=== PATIENT | male | born 1950 | race Caucasian/White ===

== ENCOUNTER 2022-01-25 12:08 | Outpatient (CLI) | payer MEDICARE, SELFPAY ==
--- NOTE | ~2022-01-25 | MR_ITS ---
. EXAMINATION: MR brain/brain stem wo/w con DATE: 01/25/2022 13:23 INDICATION: Dizziness. Ataxia. TECHNIQUE: Magnetic resonance imaging (MRI) of the brain and brainstem was performed without and with 20 mL MultiHance intravenous contrast. COMPARISON: None. FINDINGS: There are scattered areas of nonspecific increased T2-weighted signal intensity in the cere bral white matter, which is within normal limits for the patient's age. There is no intracranial hemo rrhage, acute infarction, or abnormal intracranial mass lesion. The ventricles are normal in size. Th ere is mucosal thickening in the paranasal sinuses. The orbits are normal. The mastoid air cells are normal. IMPRESSION: 1. Normal aging brain. Reviewed, dictated and finalized at location A. IMPRESSION: 1. Normal aging brain.
--- NOTE | ~2022-01-25 | US_ITS ---
EXAMINATION: US carotid duplex BI DATE: 01/25/2022 13:43 INDICATION: Ataxia. Gait disturbance. Seizure-like episode. Dizziness. TECHNIQUE: Grayscale, color Doppler, and pulsed Doppler images of the cervical carotid arteries were obtained. The degree of vessel stenosis is placed in one of the following categories: normal, <50%, 5 0-69%, >=70% but less than near-occlusion, near-occlusion, or total occlusion. Note that percent sten osis relative to normal distal artery lumen diameter is indirectly measured from velocity measurement s as described by Celso, et al. Radiology 2003; 229:[id number]. COMPARISON: None. FINDINGS: RIGHT: The right common carotid artery (CCA) peak systolic velocity (PSV) is 78 cm/s. The right internal car otid artery (ICA) PSV is 64 cm/s. The right ICA end-diastolic velocity (EDV) is 22 cm/s. The right IC A/CCA PSV ratio is 0.8. Grayscale and color Doppler images yield an estimate of <50% diameter reducti on from plaque in the ICA. The external carotid artery (ECA) PSV is 86 cm/s. There is antegrade flow in the right vertebral artery. LEFT: The left CCA PSV is 87 cm/s. The left ICA PSV is 77 cm/s. The left ICA EDV is 23 cm/s. The left ICA/C CA PSV ratio is 0.9. Grayscale and color Doppler images yield an estimate of <50% diameter reduction from plaque in the ICA. The ECA PSV is 75 cm/s. There is antegrade flow in the left vertebral artery. IMPRESSION: 1. <50% stenosis in the right internal carotid artery. 2. <50% stenosis in the left internal carotid artery. Reviewed, dictated and finalized at location A.
[2022-01-25 13:00] LABS: Estimated Glomerular Filt Rate > 60
== END 2022-01-25 12:09 | disposition home or self-care (01) ==
PROVIDERS: PCP Internal Medicine; Visit Provider Physician Assistant Medical
DX: R26.0 Ataxic gait (principal); G40.89 Other seizures; R42 Dizziness and giddiness; I65.23 Occlusion and stenosis of bilateral carotid arteries
CPT/HCPCS: 70553; 93880; A9577

== ENCOUNTER 2022-02-20 12:46 | Emergency (ER) | payer OTHER, MEDICARE, SELFPAY ==
--- NOTE | ~2022-02-20 | XR_ITS ---
EXAM: XR knee RT 3V DATE: 02/20/2022 17:31 HISTORY: anterior pain s/p fall . COMPARISON: None available. FINDINGS: Normal mineralization. No fracture or dislocation. No lytic or blastic lesion. Moderate ri ght knee joint osteoarthritis. No erosion or periosteal change. Vascular calcifications. IMPRESSION: No acute osseous finding in the right knee. Reviewed, dictated and finalized at location K.
--- NOTE | ~2022-02-20 | US_ITS ---
EXAMINATION: US venous doppler LE RT DATE: 02/20/2022 15:51 INDICATION: pain, redness, swelling . TECHNIQUE: Grayscale images without and with compression and Doppler images of the right lower extrem ity veins were obtained. COMPARISON: None FINDINGS: The right common femoral vein, profunda (deep) femoral vein, femoral vein, popliteal vein, peroneal v ein, posterior tibial veins, gastrocnemius vein, and greater saphenous vein are patent. IMPRESSION: 1. Patent right lower extremity veins. No evidence of deep venous thrombosis. Reviewed, dictated and finalized at location K.
--- NOTE | ~2022-02-20 | XR_ITS ---
EXAM: XR foot RT min 3V DATE: 02/20/2022 16:01 HISTORY: INJURY 2-3WKS AGO. PAIN SWELLING TO DORSUM OF FOOT . COMPARISON: None available. FINDINGS: Decreased mineralization. Mildly comminuted and mildly angulated fractures of the distal r ight second and third metatarsals. No lytic or blastic lesion. Moderate degenerative change at the fi rst MTP. No erosion or periosteal change. Forefoot soft tissue swelling. IMPRESSION: Mildly angulated fractures of the distal right second and third metatarsals. Reviewed, dictated and finalized at location K. IMPRESSION: Mildly angulated fractures of the distal right second and third met atarsals.
[2022-02-20 13:33] VITALS: BP 138/70; PULSE 78; RESP 20; TEMP 36.3; O2SAT 99
--- NOTE | 2022-02-20 15:30 | ED.LOWEXIN ---
HPI - Extremity Injury (Lower) General Chief Complaint: Extremity Injury, Lower <Digna Smith PA-C - Last Filed: 02/20/22 19:05> Stated Complaint: foot pain/redness <Digna Smith PA-C - Last Filed: 02/20/22 19:05> Time Seen by Provider: 02/20/22 15:11 <Digna Smith PA-C - Last Filed: 02/20/22 19:05> History of Present Illness HPI Narrative: Patient 72-year-old male here for evaluation of right foot pain, swelling and redness over the past week. Patient had injuries last week in which she tripped over an object on the ground and landed on his foot in inversion. He was evaluated at an outside hospital, had plain films done that were negative, and was told that he had an ankle sprain. Patient has been walking on the foot and has not use any pain medicine, but he notes that he has had bruising and swelling ever since. No numbness or tingling or difficulty moving the foot. Also noting right knee pain since the fall. No fevers, chills, calf pain. <SHERLY Sosa Last Filed: 02/20/22 19:05> Related Data Home Medications: Home Medications Medication Instructions Recorded Confirmed aspirin 81 mg tablet,delayed 81 mg PO DAILY 01/25/22 release (Adult Low Dose Aspirin) diazepam 5 mg tablet 5 mg PO QHS PRN 01/25/22 glimepiride 1 mg tablet 1 mg PO QAM 01/25/22 lisinopril 10 mg tablet 10 mg PO DAILY 01/25/22 metformin 500 mg tablet 1,000 mg PO BID 01/25/22 omeprazole 20 mg tablet,delayed 20 mg PO DAILY 01/25/22 release simvastatin 20 mg tablet 20 mg PO DAILY 01/25/22 tamsulosin 0.4 mg capsule 0.4 mg PO DAILY 02/04/22 <SHERLY Sosa Last Filed: 02/20/22 19:05> Allergies/Adverse Reactions: Allergies Allergy/AdvReac Type Severity Reaction Status Date / Time Penicillins AdvReac Unknown PASSED OUT Verified 02/04/22 15:24 <Digna Smith PA-C - Last Filed: 02/20/22 19:05> Review of Systems Review of Systems: Gen: Denies fevers or chills Eyes: Denies eye pain or visual change ENT: Denies congestion Respiratory: Denies shortness of breath or cough CV: Denies chest pain or palpitations GI: Denies abdominal pain nausea, emesis or diarrhea : denies burning, urgency, frequency or hematuria Musculoskeletal: Reports right foot pain. Denies back pain or muscle pain Neuro: Denies numbness, tingling, weakness or focal weakness Skin: Denies rash Except as documented, all other systems reviewed and negative <Digna Smith PA-C - Last Filed: 02/20/22 19:05> [facility] Past Medical History Medical History: Medical History Seizure-like activity <Digna Smith PA-C - Last Filed: 02/20/22 19:05> Social History Social History: Social History Smoking status: Current every day smoker <Digna Smith PA-C - Last Filed: 02/20/22 19:05> Exam Narrative: Gen: Alert, oriented, no acute distress Eyes: EOMI, no icterus Pulm: Respirations even and unlabored, symmetric thorax expansion, no audible stridor or visible cyanosis CV: 2+ DP and PT pulses bilaterally. GI: No distension, no voluntary/involuntary guarding Neuro: AOx4, moves all extremities without apparent difficulty or weakness, follows commands MSK: Right foot is slightly swollen and erythematous. He has numerous small contusions over the distal tarsal bones. He has full range of motion in his foot without pain. Sensation intact to entirety of foot. Compartments are soft. No pain with passive stretch. No bony tenderness to right knee. Full range of motion without pain. Skin: No jaundice, no visible bruising, rashes, lesions or wounds on exposed skin Psych: Normal mood/affect, insight/judgement good, adequate fund of knowledge, recent/remote memory intact <Digna Smith PA-C - Last Filed: 02/20/22 19:05> [employer]/P
--- NOTE | 2022-02-20 18:12 | PC.NURSE ---
Splint applied to right leg.
== END 2022-02-20 18:29 | disposition home or self-care (01) ==
PROVIDERS: Emergency Provider Emergency Medicine; PCP Family Medicine
DX: S92.321A Displaced fracture of second metatarsal bone, right foot, initial encounter for closed fracture (principal); S92.331A Displaced fracture of third metatarsal bone, right foot, initial encounter for closed fracture; F17.200 Nicotine dependence, unspecified, uncomplicated; Z79.84 Long term (current) use of oral hypoglycemic drugs; Z79.82 Long term (current) use of aspirin; X50.9XXA Other and unspecified overexertion or strenuous movements or postures, initial encounter; W18.41XA Slipping, tripping and stumbling without falling due to stepping on object, initial encounter
CPT/HCPCS: 29515; 73562; 73630; 93971; 99284

== ENCOUNTER 2025-06-06 01:13 | Day surgery (SDC) | payer MEDICARE, SELFPAY ==
[2025-05-29 09:57] VITALS: BMI 31.4
[2025-06-06 09:29] VITALS: BP 145/71; PULSE 87; RESP 18; TEMP 36.6; O2SAT 100; BMI 31.0
[2025-06-06] MEDS: LACTATED RINGERS 1,000 ML 150 ML IV CONT (09:42)
--- NOTE | 2025-06-06 09:49 | WPDANESEPPF ---
Anes - Initial Pre Proc Eval Procedure: Operation Date: 06/06/25 11:00 Proposed Procedures p Screening Colonoscopy - Joe Estrada MD Date/Time: 06/06/25 09:49 Surgeon: Joe Estrada MD Pre Op Diagnosis: Personal history of colon polyps, unspecified Patient Data Age: 75 Gender: M Height: 1.8 m Weight: 100.9 kg Last Vital Signs Temp 97.8 F 06/06/25 09:29 Pulse 87 06/06/25 09:29 Resp 18 06/06/25 09:29 BP 145/71 H 06/06/25 09:29 Pulse Ox 100 06/06/25 09:29 O2 Del Method Room Air 06/06/25 09:29 Allergies Allergy/AdvReac Type Severity Reaction Status Date / Time Penicillins AdvReac Unknown PASSED OUT Verified 06/06/25 09:27 Home Medications ?Medication ?Instructions ?Recorded ?Confirmed ?Type aspirin 81 mg tablet,delayed 81 mg PO DAILY 01/25/22 06/06/25 History release (Adult Low Dose Aspirin) pen needle, diabetic 31 gauge x #50 ea 10/18/22 01/02/25 Rx 3/16 (Comfort EZ Pen [place]) blood sugar diagnostic (Blood #100 ea 01/06/23 01/02/25 Rx Glucose Test strips) lancets #100 ea 01/06/23 01/02/25 Rx simvastatin 20 mg tablet See Rx Instructions .Route 10/23/24 06/06/25 Rx .COMPLEX #90 tabs lisinopril 10 mg tablet See Rx Instructions .Route 12/13/24 06/06/25 Rx .COMPLEX #90 tabs tamsulosin 0.4 mg capsule See Rx Instructions .Route 12/24/24 06/06/25 Rx .COMPLEX #90 caps glimepiride 2 mg tablet 2 mg PO QAM #90 tabs 01/28/25 06/06/25 Rx semaglutide 1 mg/dose (4 mg/3 mL) See Rx Instructions .Route 01/28/25 06/06/25 Rx subcutaneous pen injector (Ozempic) .COMPLEX #3 mL zolpidem 10 mg tablet (Ambien) 10 mg PO QHS #30 tabs 02/20/25 06/06/25 Rx metformin 500 mg tablet 1,000 mg (2 x 500 mg) PO BID #360 03/04/25 06/06/25 Rx tabs duloxetine 30 mg capsule,delayed 30 mg PO DAILY #90 caps 03/18/25 06/06/25 Rx release pantoprazole 40 mg tablet,delayed 40 mg PO QAM #90 tabs 03/18/25 06/06/25 Rx release albuterol sulfate 90 mcg/actuation 1 inh inhalation Q4H PRN shortness 04/26/25 05/29/25 Rx aerosol inhaler of breath or wheezing #6.7 grams fluticasone 250 mcg-salmeterol 50 See Rx Instructions .Route 04/30/25 06/06/25 Rx mcg/dose blistr powdr for .COMPLEX #60 ea inhalation bimatoprost 0.01 % eye drops 1 drp EACH EYE HS 05/29/25 06/06/25 History (Nba) cholecalciferol (vitamin D3) 1,250 1,250 mcg PO WEEKLY #12 caps 06/03/25 06/06/25 Rx mcg (50,000 unit) capsule Laboratory Tests 06/06/25 09:33 POC Capillary Glucose 200 H mg/dl (65-105) Patient hx anesthesia problems: none Family hx anesthesia problems: none Results Review: All pre-operative results and documents have been reviewed as part of the pre-operative evaluation. [facility] Past Medical History Medical History Insomnia Hyperglycemia Asthma Bronchitis Family History Family History Unknown Diabetes mellitus Cancer Social History Social History Social History: only smokes marijuana Years smoked: 2 Smoking status: Current every day smoker Tobacco type: cigarettes and pipe Alcohol intake: current Drinks per week: 3 Substance use: current Substance use type: marijuana Other substance usage details: daily Living arrangements: with family Spiritual care concerns: No Anes - Eval Final PreProcedure Day of Procedure 06/06/25 09:49 Patient weight: normal Heart: regular rate and rhythm Lungs: clear to auscultation Airway: Mallampati scale class II Neurological: alert and oriented Last oral intake: >/= 8 hours ASA classification: III Emergent: no Anesthetic plan: proceed Anesthesia type and monitoring: general GIVS and standard monitoring Results Review: All pre-operative results and documents have been reviewed as part of the pre-operative evaluation. Informed Consent: The patient's anesthetic plan and its attendant risks and benefits were discussed with the patient/family/POA. Questions were solicited and answers provided to the satisfaction of the patient/family/POA.
--- NOTE | 2025-06-06 09:57 | PM.IMHP2 ---
H&P: HPI History of Present Illness Date/Time: 06/06/25 09:57 Chief Complaint: Screening colonoscopy Narrative: This is the patient's 3rd screening colonoscopy. There are no GI symptoms and there is no family history of colorectal cancer. Review of Systems Review of Systems: All systems reviewed & are unremarkable except as noted in HPI and below PMFSH Past Medical History Medical History Insomnia Hyperglycemia Asthma Bronchitis Family History Family History Unknown Diabetes mellitus Cancer Social History Social History Social History: only smokes marijuana Years smoked: 2 Smoking status: Current every day smoker Tobacco type: cigarettes and pipe Alcohol intake: current Drinks per week: 3 Substance use: current Substance use type: marijuana Other substance usage details: daily Living arrangements: with family Spiritual care concerns: No Meds Home Medications and Allergies Home Medications ?Medication ?Instructions ?Recorded ?Confirmed ?Type aspirin 81 mg tablet,delayed 81 mg PO DAILY 01/25/22 06/06/25 History release (Adult Low Dose Aspirin) pen needle, diabetic 31 gauge x #50 ea 10/18/22 01/02/25 Rx 3/16 (Comfort EZ Pen [place]) blood sugar diagnostic (Blood #100 ea 01/06/23 01/02/25 Rx Glucose Test strips) lancets #100 ea 01/06/23 01/02/25 Rx simvastatin 20 mg tablet See Rx Instructions .Route 10/23/24 06/06/25 Rx .COMPLEX #90 tabs lisinopril 10 mg tablet See Rx Instructions .Route 12/13/24 06/06/25 Rx .COMPLEX #90 tabs tamsulosin 0.4 mg capsule See Rx Instructions .Route 12/24/24 06/06/25 Rx .COMPLEX #90 caps glimepiride 2 mg tablet 2 mg PO QAM #90 tabs 01/28/25 06/06/25 Rx semaglutide 1 mg/dose (4 mg/3 mL) See Rx Instructions .Route 01/28/25 06/06/25 Rx subcutaneous pen injector (Ozempic) .COMPLEX #3 mL zolpidem 10 mg tablet (Ambien) 10 mg PO QHS #30 tabs 02/20/25 06/06/25 Rx metformin 500 mg tablet 1,000 mg (2 x 500 mg) PO BID #360 03/04/25 06/06/25 Rx tabs duloxetine 30 mg capsule,delayed 30 mg PO DAILY #90 caps 03/18/25 06/06/25 Rx release pantoprazole 40 mg tablet,delayed 40 mg PO QAM #90 tabs 03/18/25 06/06/25 Rx release albuterol sulfate 90 mcg/actuation 1 inh inhalation Q4H PRN shortness 04/26/25 05/29/25 Rx aerosol inhaler of breath or wheezing #6.7 grams fluticasone 250 mcg-salmeterol 50 See Rx Instructions .Route 04/30/25 06/06/25 Rx mcg/dose blistr powdr for .COMPLEX #60 ea inhalation bimatoprost 0.01 % eye drops 1 drp EACH EYE HS 05/29/25 06/06/25 History (Nba) cholecalciferol (vitamin D3) 1,250 1,250 mcg PO WEEKLY #12 caps 06/03/25 06/06/25 Rx mcg (50,000 unit) capsule Allergies Allergy/AdvReac Type Severity Reaction Status Date / Time Penicillins AdvReac Unknown PASSED OUT Verified 06/06/25 09:27 Vital Signs Vital Signs - 24 hr 06/06/25 09:29 Temperature 97.8 F Pulse Rate 87 Respiratory Rate 18 Blood Pressure 145/71 H Pulse Oximetry 100 Oxygen Delivery Room Air Exam Const: General: cooperative and healthy appearing Resp: Effort & Inspection: normal respiratory effort and able to speak in complete sentences Auscultation: clear to auscultation bilaterally Cardio: Rate: regular rate Rhythm: regular rhythm GI: Inspection: normal to inspection GI Palp: No No hepatosplenomegaly present Auscultation: normal bowel sounds Rectal Exam: deferred Skin: General skin exam: normal color Psych: Appearance: grossly normal Mental Status: mental status grossly normal Assessment and Plan Assessment and plan (1) Encounter for screening colonoscopy: Code(s): Z12.11 - Encounter for screening for malignant neoplasm of colon Status: Acute Assessment and Plan: The patient is deemed a good candidate for the procedure. Consent signed. Will proceed. Prior Studies I have reviewed the following patient records and this information was taken into consideration when formulating the assessment and plan.: previous labs, previous ER visits, previous hospitalizations and previous clinic visits
--- NOTE | 2025-06-06 10:22 | S_PTH ---
PATIENT: Medardo Ortega Jr. LOC: [facility] U#:[id number] AGE/SX: 75/M ROOM: RE06/06/[address]: Joe Estrada MD : 1950 BED: DIS: 06/06/2025 SPEC #: [id number] RECD: 06/06/25 11:49 STATUS: RICKY REQ #: [id number] JANE: 06/06/25 10:[address]: Joe Estrada DEPT: [facility] Surgical RECD BY: Taty Mcginnis ENTERED: 06/06/25 11:49 SP TYPE: Surgical OTHR DR: Elizabeth Giordano, EMMY Tissues: A - Colon Polypectomy Procedures: Hematoxylin and Eosin Stain Gross and Microscopic Level 4
[2025-06-06 10:24] VITALS: BP 96/66; PULSE 80; RESP 18; O2SAT 98
[2025-06-06 10:34] VITALS: BP 107/70; PULSE 82; RESP 18; O2SAT 99
[2025-06-06 10:44] VITALS: BP 112/67; PULSE 80; RESP 18; O2SAT 100
== END 2025-06-06 10:57 | disposition home or self-care (01) ==
PROVIDERS: PCP Nurse Practitioner Family; Referring Provider Nurse Practitioner Family; Visit Provider Internal Medicine Gastroenterology
PROC: 0DJD8ZZ Inspection of Lower Intestinal Tract, Via Natural or Artificial Opening Endoscopic (ICD-10-PCS; CPT 45378; principal; 2025-06-06 11:00)
DX: Z12.11 Encounter for screening for malignant neoplasm of colon (principal); D12.3 Benign neoplasm of transverse colon; K57.30 Diverticulosis of large intestine without perforation or abscess without bleeding; K64.8 Other hemorrhoids; J45.909 Unspecified asthma, uncomplicated; F17.210 Nicotine dependence, cigarettes, uncomplicated; Z79.85 Long-term (current) use of injectable non-insulin antidiabetic drugs; Z79.84 Long term (current) use of oral hypoglycemic drugs; I10 Essential (primary) hypertension; E78.5 Hyperlipidemia, unspecified; K21.9 Gastro-esophageal reflux disease without esophagitis; E11.9 Type 2 diabetes mellitus without complications; Z83.3 Family history of diabetes mellitus
CPT/HCPCS: 45385; 82948; 88305; J2003; J2704; J7120